=== PATIENT | male | born 1950 | race African-American/Black ===

== ENCOUNTER 2016-10-22 08:44 | Emergency (ER) | payer MEDICARE ==
[~2016-10-22] VITALS: Ht 160 cm; Wt 85.0 kg
[~2016-10-22 08:44] MED LIST: AUGMENTIN875TAB PO; CARAFATE PO; NORCO1 TA1 PO; NORVASC PO; PERCOCET 5/321 COMBO PO; PROTONIX40 M2 PO; UNABLE TO RECONCILE
[2016-10-22] MEDS ORDERED: KEFLEX500 MG PO (09:13)
[2016-10-22 09:20] VITALS: BP 118/66
== END 2016-10-22 09:23 | disposition home or self-care (01) ==
LOC: ED 08:44
DX: T81.31XA Disruption of external operation (surgical) wound, not elsewhere classified, initial encounter (principal); K21.9 Gastro-esophageal reflux disease without esophagitis; E03.9 Hypothyroidism, unspecified; B95.61 Methicillin susceptible Staphylococcus aureus infection as the cause of diseases classified elsewhere; Y84.8 Other medical procedures as the cause of abnormal reaction of the patient, or of later complication, without mention of misadventure at the time of the procedure

== ENCOUNTER 2017-05-26 07:45 | Day surgery (SDC) | payer MEDICARE ==
[~2017-05-26] VITALS: Ht 160 cm; Wt 70.8 kg
[~2017-05-26 07:45] MED LIST changes: +KEFLEX500 MG PO
[2017-05-26 10:42] VITALS: BP 11/73
== END 2017-05-26 11:12 | disposition home or self-care (01) ==
LOC: ENDO 07:45 → ORM 09:30 → ENDO 09:30
PROVIDERS: ATTEND Surgery
PROC: 0DB78ZX Excision of Stomach, Pylorus, Via Natural or Artificial Opening Endoscopic, Diagnostic (ICD-10-PCS; principal; 2017-05-26)
PROC: 0DJD8ZZ Inspection of Lower Intestinal Tract, Via Natural or Artificial Opening Endoscopic (ICD-10-PCS; 2017-05-26)
DX: Z12.11 Encounter for screening for malignant neoplasm of colon (principal); K21.9 Gastro-esophageal reflux disease without esophagitis; K29.50 Unspecified chronic gastritis without bleeding; Z79.899 Other long term (current) drug therapy
CPT/HCPCS: 43239; G0121

== ENCOUNTER 2018-04-19 10:21 | Emergency (ER) | payer MEDICARE ==
[~2018-04-19] VITALS: Ht 160 cm; Wt 70.5 kg
[2018-04-19 11:25] LABS: HEMATOCRIT 28.2 % (39.0-50.0); HEMOGLOBIN 10.3 g/dl (14.0-18.0); IMMATURE GRANULOCYTES 0.3 % (0.0-5.0); MEAN CELL VOLUME 85.7 fL CALC (80.0-100.0); MEAN CORPUSCULAR HGB 31.3 pG CALC (26.0-32.0); MEAN CORPUSCULAR HGB CONC 36.5 g/L CALC (32.0-36.0); NEUT# 5.22 thou/uL (1.82-7.42); RED BLOOD COUNT 3.29 mill/uL (4.70-6.10); RED CELL DISTRI WIDTH 14.6 % (11.5-15.5)
[2018-04-19 11:36] LABS: ALKALINE PHOSPHATASE 74 u/l (38-126); ANION GAP 14 (6-22 (CALC)); BILIRUBIN, TOTAL 1.1 mg/dL (0.0-1.4); BUN 14 mg/dL (8-23); BUN/CREATININE RATIO 13 (12-20 (CALC)); CARBON DIOXIDE 25 mmol/l (22-30); CHLORIDE 108 mmol/l (95-108); GFR > 60 ML/MIN (>=60 (CALC)); GFR FOR AFR.AMER. > 60 ML/MIN (>=60 (CALC)); POTASSIUM 3.8 mmol/l (3.5-5.1); SGOT/AST 32 u/l (19-48); SGPT/ALT 25 u/l (11-66); SODIUM 144 mmol/l (137-146); TOTAL PROTEIN 7.8 g/dL (6.3-8.2)
[2018-04-19 12:54] LABS: URINE BILIRUBIN - DIPSTICK NEGATIVE (NEGATIVE); URINE BLOOD DIPSTICK TRACE-LYSED (NEGATIVE); URINE COLOR YELLOW; URINE GLUCOSE - DIPSTICK NEGATIVE (NEGATIVE); URINE KETONE NEGATIVE (NEGATIVE); URINE LEUK ESTERASE NEGATIVE (NEGATIVE); URINE NITRITE - DIPSTICK NEGATIVE (Negative); URINE UROBILINOGEN - DIPSTICK 0.2 E.U./dL (0.2)
[2018-04-19 12:56] LABS: URINE CLARITY CLEAR; URINE PROTEIN - DIPSTICK Trace mg/dL (NEG-TRACE)
[2018-04-19] MEDS ORDERED: BENTYL10 MG PO (14:29)
[2018-04-19] MEDS ORDERED: TORADOL PO (14:29)
[2018-04-19 14:37] VITALS: BP 116/67
== END 2018-04-19 14:43 | disposition home or self-care (01) ==
LOC: ED 10:21
PROVIDERS: Emergency Medicine
DX: R10.12 Left upper quadrant pain (principal); M19.90 Unspecified osteoarthritis, unspecified site; K21.9 Gastro-esophageal reflux disease without esophagitis
CPT/HCPCS: Q9967